=== PATIENT | male | born 1970 | race Caucasian/White ===

== ENCOUNTER 2021-12-21 02:45 | Emergency (ER) | payer MEDICAID ==
[~2021-12-21] VITALS: Ht 167.6 cm; Wt 102.5 kg
[2021-12-21 03:04] VITALS: BP 161/82
--- NOTE | 2021-12-21 03:10 | NUR ---
pt in [facility]
--- NOTE | 2021-12-21 03:22 | NUR ---
pt to bed 7
[2021-12-21] MEDS ORDERED: DEXAMETHASONE 4 MG/ML VIAL IVP ONE (03:25)
[2021-12-21] MEDS ORDERED: AMPICILLIN/SULBACTAM 3 GM in NACL 0.9% 100 ML IV ONE (03:25)
[2021-12-21] MEDS ORDERED: NACL 0.9% 1,000 ML IV ONE ×2 (03:25)
[2021-12-21] MEDS ORDERED: ACETAMINOPHEN EXTRA STRENGTH 500 MG TAB ONE (03:30)
--- NOTE | 2021-12-21 03:33 | NUR ---
pt refused po tylenol tabs, states he cannot swallow, ermkasi sebastian made aware. pt taken to rad via w/c
--- NOTE | 2021-12-21 03:33 | NUR ---
iv to left ac 20g estab. blood collected and given to luciano from lab.
[2021-12-21] MEDS ORDERED: IBUPROFEN CHILDRENS 100 MG/5 ML UDC PO ONE (03:35)
--- NOTE | 2021-12-21 03:36 | NUR ---
51 yo m bib self with c/c of 10/10 throat pain xtueday. +swelling +tender. tonsils appear to be swollen. pt went to urgent care and was given oral lidocaine, states he has no relief. oral temp is 100.3. hx:cortney nguyễn
[2021-12-21 03:37] LABS: BASOPHILS % (AUTO) 0.3 % (0.0-2.0); HEMATOCRIT 40.9 % (36-52); HEMOGLOBIN 13.9 g/dL (12.0-18.0); LYMPHOCYTES # (AUTO) 1.3 K/uL (2.0-11.5); MEAN CORPUSCULAR HEMOGLOBIN 30 pg (27-31); MEAN CORPUSCULAR HGB CONC 34 g/dL (33-37); MEAN CORPUSCULAR VOLUME 89.2 fL (80-94); MONOCYTES # (AUTO) 1.6 K/uL (0.8-1.0); MONOCYTES % (AUTO) 9.5 % (1.7-9.3); NEUTROPHILS # (AUTO) 13.7 K/uL (1.8-7.7); NEUTROPHILS % (AUTO) 82.2 % (42.2-75.2); PLATELET COUNT (AUTO) 137 K/uL (140-450); RED BLOOD CELL COUNT(AUTO) 4.59 MIL/uL (4.20-6.10); RED CELL DISTRIBUTION WIDTH 13.6 % (11.6-13.7); WHITE BLOOD COUNT (AUTO) 16.7 K/uL (4.8-10.8)
--- NOTE | 2021-12-21 03:37 | NUR ---
Patient taken to CT scan via WC
[2021-12-21] MEDS ORDERED: AMPICILLIN/SULBACTAM 3 GM VIAL ONE (03:40)
[2021-12-21 04:11] LABS: ALBUMIN 2.9 g/dL (3.4-5.0); ANION GAP 10.6 (8-16); CARBON DIOXIDE 28.2 mmol/L (21-32); CREATININE 0.9 mg/dL (0.6-1.3); POTASSIUM 3.8 mmol/L (3.5-5.1); TOTAL BILIRUBIN 0.9 mg/dL (0.0-1.0)
--- NOTE | 2021-12-21 05:58 | NUR ---
PATIENT RESTING IN BED. BED LOW AND LOCKED. ALL NEEDS MET
--- NOTE | 2021-12-21 06:27 | NUR ---
Dr. Richardson examining patient.
[2021-12-21] MEDS ORDERED: AMOX-1230 PO (06:46)
[2021-12-21] MEDS ORDERED: METH4TAB1 PO (06:46)
[2021-12-21 07:03] VITALS: BP 158/80
--- NOTE | 2021-12-21 07:03 | NUR ---
Patient discharged with v/s stable. Written and verbal after care instructions given TONSILLITIS and explained. Patient alert, oriented and verbalized understanding of instructions. Ambulatory with steady gait. All questions addressed prior to discharge. ID band removed. Patient advised to follow up with PMD. Rx of AMOXICILLIN/POTASSIUM CLAV AND MEDROL given.
--- NOTE | 2021-12-21 07:11 | NUR ---
The patient's care was reviewed and supervised by Rebeca Win RN, RN.
== END 2021-12-21 07:03 | disposition home or self-care (01) ==
LOC: MED 02:45
DX: J03.90 Acute tonsillitis, unspecified (principal); J02.9 Acute pharyngitis, unspecified; E11.9 Type 2 diabetes mellitus without complications; Z79.899 Other long term (current) drug therapy
CPT/HCPCS: 36415; 70490; 80053; 83605; 85025; 87040; 96365; 96375; 99284; J0295; J1100; J7030

== ENCOUNTER 2022-08-30 06:00 | Inpatient (IN) | payer MEDICAID ==
[~2022-08-30] VITALS: Ht 167.6 cm; Wt 103.4 kg
[~2022-08-30 06:00] MED LIST: AMOX-1230 PO; METH4TAB1 PO
[2022-08-30 06:10] VITALS: BP 150/87
--- NOTE | 2022-08-30 06:13 | NUR ---
TO BED AMBULATORY
--- NOTE | 2022-08-30 06:21 | NUR ---
C/O Epigastric pain x today. Patient reported, had epigastric pain since this morning with nausea, vomiting, no diarrhea. pain rate /. PMHx; DM (Per patient, patient states " I did not take medication.")
[2022-08-30] MEDS ORDERED: ALUMINUM HYD/MAG/SIMETHICONE 30 ML UDC PO ONE (06:25)
[2022-08-30] MEDS ORDERED: FAMOTIDINE 20 MG TAB PO ONE (06:25)
[2022-08-30] MEDS ORDERED: ONDANSETRON 4 MG ODT PO ONE (06:25)
--- NOTE | 2022-08-30 06:36 | NUR ---
Dr. Gruber examining patient.
--- NOTE | 2022-08-30 06:41 | NUR ---
IV PLACED: 20G LAC
[2022-08-30 07:02] LABS: BASOPHILS % (AUTO) 0.2 % (0.0-2.0); EOSINOPHILS % (AUTO) 0.2 % (0.0-4.0); HEMATOCRIT 41.8 % (36-52); LYMPHOCYTES # (AUTO) 1.2 K/uL (2.0-11.5); LYMPHOCYTES % (AUTO) 9.7 % (20.5-51.1); MEAN CORPUSCULAR HEMOGLOBIN 30 pg (27-31); MEAN CORPUSCULAR HGB CONC 34 g/dL (33-37); MEAN CORPUSCULAR VOLUME 89.3 fL (80-94); MONOCYTES # (AUTO) 0.7 K/uL (0.8-1.0); MONOCYTES % (AUTO) 5.5 % (1.7-9.3); NEUTROPHILS # (AUTO) 10.6 K/uL (1.8-7.7); NEUTROPHILS % (AUTO) 84.4 % (42.2-75.2); PLATELET COUNT (AUTO) 156 K/uL (140-450); RED BLOOD CELL COUNT(AUTO) 4.68 MIL/uL (4.20-6.10); RED CELL DISTRIBUTION WIDTH 14.2 % (11.6-13.7); WHITE BLOOD COUNT (AUTO) 12.5 K/uL (4.8-10.8)
--- NOTE | 2022-08-30 07:22 | NUR ---
Report given to MARCI Gloria and endorse care of patient.
[2022-08-30 07:27] LABS: ALBUMIN 3.3 g/dL (3.4-5.0); ASPARTATE AMINOTRANSFERASE 20 U/L (15-37); CARBON DIOXIDE 27.8 mmol/L (21-32); CHLORIDE 99 mmol/L (98-107); CREATININE 0.9 mg/dL (0.6-1.3); GFR ARICAN-AMERICAN 113 mL/min (>90); GLUCOSE 379 mg/dL (74-106); LIPASE 135 U/L (73-393); POTASSIUM 3.8 mmol/L (3.5-5.1); SODIUM SERUM 136 mmol/L (136-145); TOTAL BILIRUBIN 0.5 mg/dL (0.0-1.0); UREA NITROGEN, BLOOD 13 mg/dL (7-18)
--- NOTE | 2022-08-30 07:40 | NUR ---
ASLEEP, NO COMPLAINTS. FAMILY AT BEDSIDE
[2022-08-30] MEDS ORDERED: KETOROLAC 15 MG/ML VIAL IM ONE (09:55)
--- NOTE | 2022-08-30 12:06 | NUR ---
REPORTS RELEIF FROM PAIN [facility], AWARE OF ADMISSION TO HOSPITAL
[2022-08-30] MEDS ORDERED: DOCUSATE SODIUM 100 MG GELCAP PO PRN (12:25)
[2022-08-30] MEDS ORDERED: POTASSIUM CHLORIDE 10 MEQ TABER PO PRN (12:25)
[2022-08-30] MEDS ORDERED: ONDANSETRON 4 MG/2 ML VIAL IVP PRN (12:25)
[2022-08-30] MEDS ORDERED: MAG SULF 2000 MG/WATER PREMIX 50 ML IV PRN (12:25)
[2022-08-30] MEDS ORDERED: LORazepam 2 MG/ML VIAL IVP PRN (12:25)
[2022-08-30] MEDS ORDERED: ACETAMINOPHEN 325 MG TAB PO PRN (12:25)
[2022-08-30] MEDS ORDERED: MORPHINE SULFATE 2 MG/ML SYR IVP PRN (12:25)
[2022-08-30] MEDS ORDERED: ZOLPIDEM 10 MG TAB PO PRN (12:25)
[2022-08-30] MEDS ORDERED: hydrALAZINE 20 MG/ML VIAL IVP PRN (12:40)
[2022-08-30] MEDS: DEXT 5% /NACL 0.9% 1,000 ML IV SCH ×2 (13:12→22:20)
[2022-08-30] MEDS ORDERED: PIPERACILLIN/TAZOBACTAM 3.375 GM VIAL IV ONE ×2 (13:29→21:03)
[2022-08-30] MEDS: PIPERACILLIN/TAZOBACTAM 3.375 GM in DEXTROSE 5% 50 ML IV SCH ×2 (13:36→21:18)
--- NOTE | 2022-08-30 18:49 | NUR ---
AWARE OF NPO STATUS
--- NOTE | 2022-08-30 20:10 | NUR ---
report given to Stephanie Lott
--- NOTE | 2022-08-30 20:15 | NUR ---
Patient will be admitted to care of Dr. Stephens. Admited to MS. Will go to room 128 b. Belongings list completed. Report to AMA COVARRUBIAS
--- NOTE | 2022-08-30 20:34 | NUR ---
PATIENT WAS BROUGHT TO [facility] UNIT FROM ER VIA WHEELCHAIR WITH CC: ABDOMINAL PAIN, NAUSEA, VOMITING THIS MORNING. DX: ACUTE CHOLECYSTITIS. PATIENT AWAKE ALERT ORIENTED X4 VERBALLY RESPONSIVE. NO ACUTE DISTRESS NOTED ON ROOM AIR. INSTRUCTED PATIENT TO BE NPO WITH UNDERSTANDING. ORIENTED TO CALL LIGHT, ROOM, RESTROOM, STAFF. SAFETY PRECAUTIONS ARE IN PLACE. WILL CONTINUE TO MONITOR.
--- NOTE | 2022-08-30 21:18 | NUR ---
ZOSYN ADMINISTERED ORDERED.
--- NOTE | 2022-08-30 22:42 | NUR ---
Dr Brown call to schedule surgery Lap vazquez at 9am 08/31/22, told Dr Brown that the HIDA scan machine does not have the correct OC. Dr Brown stated it is ok to do the surgery without HIDA scan of gallbladder ordered by Dr Hammond. Will notifiy OR crew and Dorene academic support director for Lap vazquez at 9am 08/31/[address] Brown
[2022-08-31] VITALS (9 sets, daily range): BP systolic 130–155; BP diastolic 71–86
[2022-08-31 02:09] LABS: PROTHROMBIN TIME 9.9 secs (10.8-13.4)
[2022-08-31] MEDS ORDERED: DEXTROSE 50% 50 ML SYR IVP PRN (02:25)
[2022-08-31] MEDS ORDERED: PIPERACILLIN/TAZOBACTAM 3.375 GM VIAL IV ONE (04:26)
[2022-08-31] MEDS: PIPERACILLIN/TAZOBACTAM 3.375 GM in DEXTROSE 5% 50 ML IV SCH ×3 (04:50→21:58)
[2022-08-31 05:47] LABS: ANION GAP 8.5 (8-16); CARBON DIOXIDE 30.4 mmol/L (21-32); CREATININE 0.9 mg/dL (0.6-1.3); POTASSIUM 3.9 mmol/L (3.5-5.1)
[2022-08-31 05:49] LABS: BASOPHILS % (AUTO) 0.1 % (0.0-2.0); EOSINOPHILS % (AUTO) 0.2 % (0.0-4.0); HEMOGLOBIN 13.3 g/dL (12.0-18.0); LYMPHOCYTES # (AUTO) 1.3 K/uL (2.0-11.5); LYMPHOCYTES % (AUTO) 12.4 % (20.5-51.1); MEAN CORPUSCULAR HEMOGLOBIN 30 pg (27-31); MEAN CORPUSCULAR HGB CONC 33 g/dL (33-37); MONOCYTES % (AUTO) 9.8 % (1.7-9.3); NEUTROPHILS % (AUTO) 77.5 % (42.2-75.2); PLATELET COUNT (AUTO) 153 K/uL (140-450); RED BLOOD CELL COUNT(AUTO) 4.45 MIL/uL (4.20-6.10); RED CELL DISTRIBUTION WIDTH 14.5 % (11.6-13.7); WHITE BLOOD COUNT (AUTO) 10.3 K/uL (4.8-10.8)
[2022-08-31] MEDS: INSULIN LISPRO SLIDING SCALE 100 UNITS/ML VIAL SUBQ PRN ×4 (06:32→23:23)
[2022-08-31] MEDS: BLOOD GLUCOSE MONITORING 1 DEV DEV FS SCH ×4 (06:32→23:20)
[2022-08-31] MEDS: DEXT 5% /NACL 0.9% 1,000 ML IV SCH ×2 (06:56→08:20)
--- NOTE | 2022-08-31 07:22 | NUR ---
ASSUME CONTINUITY OF CARE. INITIAL ASSESSMENT DONE. KEEP COMFORTABLE ON BED. CALL LIGHT WITHIN REACH.
--- NOTE | 2022-08-31 08:00 | NUR ---
Patient's Plan of Care was discussed and reviewed with AUTOMATION QTP TESTER: ADRIÁN
--- NOTE | 2022-08-31 08:49 | NUR ---
TA OR NURSE CAME AND CONCRETE MIXER OPERATOR HELPER PT. FOR PROCEDURE. TRANSPORT VIA WHEELCHAIR TO OR. IN STABLE CONDITION.
[2022-08-31] MEDS ORDERED: BUPIVACAINE-MPF/EPI 0.25% 30 ML VIAL INJ ONE (08:51)
[2022-08-31] MEDS ORDERED: LIDOCAINE MPF 1% 10 ML ONE (08:51)
[2022-08-31] MEDS ORDERED: KETOROLAC 30 MG/ML VIAL ONE ×2 (09:00→09:36)
[2022-08-31] MEDS ORDERED: ONDANSETRON 4 MG/2 ML VIAL ONE ×2 (09:00→09:36)
[2022-08-31] MEDS ORDERED: HYDROmorphone PFS 2 MG/ML SYR ONE ×2 (09:00→09:47)
[2022-08-31] MEDS ORDERED: PROPOFOL 200 MG/20 ML VIAL IV ONE ×2 (09:00→09:36)
[2022-08-31] MEDS ORDERED: SUGAMMADEX SODIUM 200 MG/2 ML VIAL IV ONE ×2 (09:00→10:19)
[2022-08-31] MEDS ORDERED: DESMOPRESSIN 4 MCG/ML AMP ONE (09:00)
--- NOTE | 2022-08-31 09:26 | NUR ---
PATIENT HAS BEEN SCREENED AND CATEGORIZED MODERATE NUTRITION RISK. PATIENT WILL BE SEEN WITHIN 3-5 DAYS OF ADMISSION. / [address]
[2022-08-31] MEDS ORDERED: fentaNYL citrate 0.05 MG/ML VIAL ONE (09:36)
[2022-08-31] MEDS ORDERED: SUCCINYLCHOLINE CHLORIDE 200 MG/10 ML VIAL IVP ONE (09:36)
[2022-08-31] MEDS ORDERED: HYDROmorphone 1 MG/ML AMP IVP PRN ×2 (09:40→10:35)
[2022-08-31] MEDS ORDERED: HYDROcodone/APAP 5/325 MG 1 TAB TAB PO PRN (09:40)
[2022-08-31] MEDS ORDERED: ONDANSETRON 4 MG/2 ML VIAL IVP PRN (10:35)
--- NOTE | 2022-08-31 11:15 | NUR ---
BACK FROM OR VIA GURNEY. A & O X4. C/O ABD PAIN 05/24. NO SOB, NOTED. IN STABLE CONDITION. KEEP COMFORTABLE ON BED. CALL LIGHT WITHIN REACH.
--- NOTE | 2022-08-31 15:17 | NUR ---
DR. BROWN CAME SPOKE TO PT. AT BEDSIDE WITH ASSISTANCE FROM RAYA PISANO REGARDING POST OP CARE AND D/C PLAN TOMORROW. INFORMED CHARGE NURSE AMINATA ARMIJO.
--- NOTE | 2022-08-31 15:30 | NUR ---
RECEIVED ORDER FOR IS. WENT TO PT ROOM AT 1240 AND TAUGHT PT PROPER TECHNIQUE AND PT WAS ABLE TO PULL VOLUMES BETWEEN 2000 AND 2500. RETURNED AT 1530 AND NOW PT WAS ABLE TO OBTAIN VOLUME OF 3000.
--- NOTE | 2022-08-31 19:23 | NUR ---
BEDSIDE REPORT GIVEN TO ROE PISANO. IN STABLE CONDITION.
--- NOTE | 2022-08-31 19:24 | NUR ---
RECD RESTING IN BED, AWAKE, A/OX4. RESPIRATION EVEN AND UNLABORED. IV SALINE LOCK AT THE LEFT AC G20, PATENT AND INTACT. INCISION IN THE ABDOMEN (4) WITH DERMA LAMB, ALL DRY AND INTACT. PATIENT IS VOIDING WELL AND AMBULATING TO THE BR. DENIES PAIN 0/10.
--- NOTE | 2022-08-31 19:25 | NUR ---
Patient's Plan of Care was discussed and reviewed with AUGUSTINA: ROE
--- NOTE | 2022-08-31 21:00 | NUR ---
NO BM YET, BUT PASSING GAS. PUT BACK SEQUENTIAL, IMPORTANCE OF THIS DEVICE DISCUSSED WITH PT. VERBALIZED UNDERSTANDING.
--- NOTE | 2022-09-01 | NUR ---
SLEEPING COMFORTABLY IN BED, RESPIRATION EVEN AND UNLABORED.
[2022-09-01 04:00] VITALS: BP 150/81
[2022-09-01] MEDS: PIPERACILLIN/TAZOBACTAM 3.375 GM in DEXTROSE 5% 50 ML IV SCH (04:46)
[2022-09-01 05:37] LABS: BASOPHILS % (AUTO) 0.2 % (0.0-2.0); EOSINOPHILS # (AUTO) 0.1 K/uL (0-0.4); EOSINOPHILS % (AUTO) 0.8 % (0.0-4.0); HEMATOCRIT 37.7 % (36-52); HEMOGLOBIN 12.7 g/dL (12.0-18.0); LYMPHOCYTES # (AUTO) 1.1 K/uL (2.0-11.5); LYMPHOCYTES % (AUTO) 13.1 % (20.5-51.1); MEAN CORPUSCULAR HEMOGLOBIN 30 pg (27-31); MEAN CORPUSCULAR HGB CONC 34 g/dL (33-37); MEAN CORPUSCULAR VOLUME 89.4 fL (80-94); MONOCYTES # (AUTO) 0.7 K/uL (0.8-1.0); MONOCYTES % (AUTO) 8.4 % (1.7-9.3); NEUTROPHILS # (AUTO) 6.8 K/uL (1.8-7.7); NEUTROPHILS % (AUTO) 77.5 % (42.2-75.2); PLATELET COUNT (AUTO) 160 K/uL (140-450); RED BLOOD CELL COUNT(AUTO) 4.21 MIL/uL (4.20-6.10); RED CELL DISTRIBUTION WIDTH 13.9 % (11.6-13.7); WHITE BLOOD COUNT (AUTO) 8.7 K/uL (4.8-10.8)
[2022-09-01 05:58] LABS: ANION GAP 10.7 (8-16); CARBON DIOXIDE 27.1 mmol/L (21-32); CREATININE 0.9 mg/dL (0.6-1.3); POTASSIUM 3.8 mmol/L (3.5-5.1)
[2022-09-01] MEDS: BLOOD GLUCOSE MONITORING 1 DEV DEV FS SCH (07:04)
[2022-09-01] MEDS: INSULIN LISPRO SLIDING SCALE 100 UNITS/ML VIAL SUBQ PRN (07:05)
--- NOTE | 2022-09-01 07:10 | NUR ---
CONDITION REMAIN STABLE. ENDORSED PT TO ADRIÁN JACKMAN FOR CONTINUITY OF CARE.
--- NOTE | 2022-09-01 07:20 | NUR ---
ASSUMED CONTINUITY OF CARE. INITIAL ASSESSMENT DONE. KEEP COMFORTABLE ON BED. CALL LIGHT WITHIN REACH.
[2022-09-01 08:00] VITALS: BP 157/86
--- NOTE | 2022-09-01 09:03 | NUR ---
DR. BROWN CAME AND SPOKE TO PT. AT BEDSIDE WITH ASSISTANCE FROM TENISHA -RN REGARDING D/C INSTRUCTIONS AND TEACHING.
[2022-09-01] MEDS ORDERED: METF-346 PO (09:23)
[2022-09-01] MEDS ORDERED: ACET-10509 PO (09:23)
[2022-09-01] MEDS ORDERED: AMOX1TAB7 PO (09:23)
[2022-09-01] MEDS ORDERED: LOSA25TA43 PO (09:23)
--- NOTE | 2022-09-01 11:15 | NUR ---
D/C HOME VIA WHEELCHAIR ACCOMPANIED BY PT. DAUGHTER -GREG. NO C/O PAIN. IN STABLE CONDITION. INFORMED CHARGE NURSE AMINATA ARMIJO.
== END 2022-09-01 11:17 | disposition home or self-care (01) | DRG 263 ==
LOC: MED 06:00 → MTU 12:27 → MMU 20:19
PROVIDERS: ADMIT General Practice; ATTEND General Practice
PROC: 0DNU4ZZ Release Omentum, Percutaneous Endoscopic Approach (ICD-10-PCS; 2022-08-31)
PROC: 0FT44ZZ Resection of Gallbladder, Percutaneous Endoscopic Approach (ICD-10-PCS; principal; 2022-08-31 09:00)
DX: K80.00 Calculus of gallbladder with acute cholecystitis without obstruction (principal); E44.1 Mild protein-calorie malnutrition; E11.9 Type 2 diabetes mellitus without complications; E66.9 Obesity, unspecified; I10 Essential (primary) hypertension; Z20.822 Contact with and (suspected) exposure to COVID-19; K66.0 Peritoneal adhesions (postprocedural) (postinfection); Z79.2 Long term (current) use of antibiotics; Z79.899 Other long term (current) drug therapy; Z68.36 Body mass index [BMI] 36.0-36.9, adult
CPT/HCPCS: 36415; 71045; 76705; 80048; 80053; 82374; 82948; 83036; 83690; 83735; 84484; 85025; 85610; 85730; 88304; 96372; 99285; J0330; J1170; J1885; J2001; J2405; J2543; J2597; J2704; J3010; J3490; J7030; J7060; Q0092; Q0162